=== PATIENT | male | born 1970 | race Caucasian/White ===

== ENCOUNTER 2023-01-12 15:58 | Outpatient (OUT) | payer BC, SELFPAY ==
--- NOTE | 2023-01-12 16:08 | XR_ITS ---
The [address] [address] Patient Name: BK DELGADO MRN: [id number] date: 1970 Sex: M Assigned Patient Location: [facility] Current Patient Location: [facility] Accession/Order Number: [id number] Exam Date: 01/12/2023 16:10 Report Date: 01/12/2023 19:18 At the request of: ASHLEIGH KC Procedure: XR shoulder RT min 2V EXAM: XR shoulder RT min 2V HISTORY: M25.819 SHOULDER IMPINGEMENT COMPARISON: None. TECHNIQUE: 3 views of the right shoulder were obtained. FINDINGS: There is no evidence of an acute fracture or dislocation. There is moderate narrowing of the acromioclavicular joint accompanied by small osteophytes. The glenohumeral joint appears relatively intact. The acromiohumeral interval is unremarkable. No abnormal soft tissue calcifications are present. IMPRESSION: No acute fracture or dislocation. Degenerative changes are present at the acromioclavicular joint. No abnormal soft tissue calcifications are present. If the patient's symptoms persist and further evaluation is clinically indicated perhaps an MRI of the shoulder would be helpful. Electronically authenticated by: DREW CANO Date: 01/12/2023 19:18
== END 2023-01-12 15:59 | disposition home or self-care (01) ==
LOC: RAD 16:02
PROVIDERS: PCP Family Medicine; Visit Provider Family Medicine
DX: M25.819 Other specified joint disorders, unspecified shoulder (principal)
CPT/HCPCS: 73030

== ENCOUNTER 2023-01-25 13:26 | Day surgery (SDC) | payer BC, SELFPAY ==
--- NOTE | 2023-01-25 13:34 | MR_ITS ---
[address] [address] Patient Name: BK DELGADO MRN: [id number] date: 1970 Sex: M Assigned Patient Location: MRI Current Patient Location: Accession/Order Number: [id number] Exam Date: 01/25/2023 14:50 Report Date: 01/25/2023 16:45 At the request of: ASHLEIGH KC Procedure: MR arthogram shoulder EXAMINATION: MR arthrogram shoulder HISTORY: Right Shoulder Arthritis COMPARISON: No relevant comparison available. TECHNIQUE: A variety of imaging planes and parameters were utilized for visualization of suspected pathology. Imaging was performed with contrast. FINDINGS: ROTATOR CUFF REGION CUFF TENDONS: Moderate T2 signal within the supraspinatus tendon at its humeral head attachment without appreciable full-thickness tear. CUFF MUSCLES: Normal appearing muscles. DELTOID: Normal. No significant atrophy or tear. LONG BICEPS TENDON: Normal. No abnormal signal, attrition, or tear. LABRUM/BICEPS ANCHOR SUPERIOR: Irregular T2 signal at base of the superior labrum near the biceps tendon attachment, suspected to represent a tear rather than normal undercutting in this region. ANTERIOR/INFERIOR: No visible tear or attrition. POSTERIOR: No posterior labrum abnormality. CAPSULE Normal. No visible capsular laxity or thickening. AC JOINT REGION AC JOINT: Small undersurface osteophytes contacting the superior rotator cuff. AC LIGAMENTS: Normal acromioclavicular ligament. CC LIGAMENTS: Normal coracoclavicular ligaments. ACROMION: Normal horizontal (Type I) configuration. SUBACROMIAL BURSA: Normal. No significant effusion. HYALINE CARTILAGE: Normal. No visible cartilage narrowing or focal defect. OTHER BONES: Normal proximal humerus, glenoid, and coracoid. OTHER OBSERVATIONS: Negative. No other significant findings or glenohumeral effusion. MR/MR arthogram shoulder IMPRESSION: 1. Moderate strain of the supraspinatus tendon. No convincing tear. 2. Suspect superior rotator cuff tear near insertion of biceps tendon. 3. Moderate degenerative changes of acromioclavicular joints which would predispose to rotator cuff injury. Electronically authenticated by: JABARI HAGEN Date: 01/25/2023 16:45
--- NOTE | 2023-01-25 13:35 | FL_ITS ---
[address] [address] Patient Name: BK DELGADO MRN: [id number] date: 1970 Sex: M Assigned Patient Location: MRI Current Patient Location: MRI Accession/Order Number: [id number] Exam Date: 01/25/2023 14:10 Report Date: 01/25/2023 15:31 At the request of: ASHLEIGH KC Procedure: FL arthrogram shoulder RT EXAMINATION: FL arthrogram shoulder RT HISTORY: Arthritis Right Shoulder COMPARISON: No relevant comparison available. TECHNIQUE: An arthrogram was performed under fluoroscopic guidance using non-ionic contrast material in the usual sterile manner after obtaining informed consent. Standard level fluoroscopic mode of operation utilized. FINDINGS: JOINT: Right shoulder NEEDLE: 25 gauge, 3.5 spinal needle. MEDICATION: 2 mL buffered 1% lidocaine for subcutaneous anesthesia. Approximately 8 mL injected into joint space consisting of a mixture of 5 mL Omnipaque-300, 5 mL 1% Xylocaine and 0.2 mL Dotarem. TECHNIQUE: Anterior approach under fluoroscopic guidance. CLINICAL: Decreased pain following the injection. COMPLICATIONS: None. OTHER: Negative. FL/FL arthrogram shoulder RT IMPRESSION: 1. Technically successful arthrogram without complication. 2. Please see separate MRI arthrogram report. Electronically authenticated by: JABARI HAGEN Date: 01/25/2023 15:31
--- NOTE | 2023-01-25 13:47 | XR_ITS ---
The [address] [address] Patient Name: BK DELGADO MRN: [id number] date: 1970 Sex: M Assigned Patient Location: MRI Current Patient Location: MRI Accession/Order Number: [id number] Exam Date: 01/25/2023 13:50 Report Date: 01/25/2023 14:05 At the request of: ASHLEIGH KC Procedure: XR foreign body eye EXAMINATION: XR foreign body eye HISTORY: Foreign Body Eye Screen COMPARISON: No relevant comparison available. FINDINGS: ORBITS: Negative for a metallic foreign body. OTHER: Negative. XR/XR foreign body eye IMPRESSION: 1. No metallic foreign body within the orbits. Electronically authenticated by: JABARI HAGEN Date: 01/25/2023 14:05
[2023-01-25] MEDS: LIDOCAINE HCL 15 ML, SODIUM BICARBONATE 2 MEQ INJ (14:40)
[2023-01-25 15:46] VITALS: BMI 31.6
--- NOTE | 2023-01-25 15:53 | PC.NURSE ---
1345 Pt alert oriented x 4 . Skin pink warm, and dry. Pt calm and cooperative. Right arm with any open areas on skin or edema.
== END 2023-01-25 14:50 | disposition home or self-care (01) ==
LOC: MRI 13:26
PROVIDERS: Radiology Diagnostic Radiology; PCP Family Medicine; Visit Provider Family Medicine
DX: M19.011 Primary osteoarthritis, right shoulder (principal)
CPT/HCPCS: 23350; 70030; 73040; 73222; 77002; A9575; Q9967

== ENCOUNTER 2023-07-26 20:27 | Outpatient (OUT) | payer BC, SELFPAY | END 2023-07-26 20:28 | disposition home or self-care (01) | LOC: SLEEP 20:27 | PROVIDERS: PCP Family Medicine; Visit Provider Family Medicine | DX: G47.33 Obstructive sleep apnea (adult) (pediatric) (principal); R06.83 Snoring | CPT/HCPCS: 95810 ==